=== PATIENT | male | born 1950 | race Caucasian/White ===

== ENCOUNTER 2020-04-28 09:47 | Outpatient (CLI) | payer MEDICARE, SELFPAY ==
--- NOTE | ~2020-04-28 | XR_ITS ---
EXAMINATION: XR knee LT 3V DATE: 04/28/2020 10:20 INDICATION: Left knee pain. TECHNIQUE: 3 views of left knee were obtained. COMPARISON: None. FINDINGS: Bone alignment is normal. No fracture. Joint spaces are well maintained. There is no knee j oint effusion. IMPRESSION: 1. Normal left knee. Reviewed, dictated and finalized at location B. ING INSPECTOR IMPRESSION: 1. Normal left knee.
--- NOTE | ~2020-04-28 | XR_ITS ---
XR lumbar spine 2-3V DATE: 04/28/2020 10:20 INDICATION: Back pain. Left low back pain. No known injury. TECHNIQUE: AP, lateral, coned lateral lumbosacral views COMPARISON: None FINDINGS: Normal alignment of the lumbar spine. No fracture or bone destruction or spondylolisthesis. Mild to moderate degenerative disc disease at L1-2; mild degenerative disease at L2-3, L3-4. There is moderate degenerative disc disease at L4-5 and L5-S1. There is degenerative change at the ap ophyseal joints of the lower lumbar and lumbosacral area. The sacroiliac joints appear normal. IMPRESSION: Multilevel degenerative disc disease Reviewed, dictated and finalized at location A. HIN RESEARCHER
--- NOTE | ~2020-04-28 | XR_ITS ---
EXAMINATION: XR ankle LT 2V DATE: 04/28/2020 10:20 INDICATION: Left ankle pain. TECHNIQUE: 2 views of left ankle were obtained. COMPARISON: None. FINDINGS: Bone alignment is normal. No fracture. There is mild osteoarthritis of talonavicular joint. There are enthesophytes at the posterior and plantar aspects of calcaneal tuberosity. IMPRESSION: 1. Mild osteoarthritis of talonavicular joint. Reviewed, dictated and finalized at location B. ER REPAIRER
== END 2020-04-28 09:48 | disposition home or self-care (01) ==
LOC: ANHIMG 09:52
PROVIDERS: PCP Internal Medicine; Visit Provider Internal Medicine
DX: M47.817 Spondylosis without myelopathy or radiculopathy, lumbosacral region (principal); M19.072 Primary osteoarthritis, left ankle and foot
CPT/HCPCS: 72100; 73562; 73600

== ENCOUNTER → 2020-07-09 07:12 | Outpatient (CLI) | payer MEDICARE, SELFPAY ==
[2020-07-09 19:10] LABS: SARS-CoV-2 RNA PCR Negative
== END ==
PROVIDERS: PCP Internal Medicine; Visit Provider Internal Medicine Cardiovascular Disease
DX: Z01.812 Encounter for preprocedural laboratory examination (principal); Z20.822 Contact with and (suspected) exposure to COVID-19
CPT/HCPCS: C9803; U0003; U0005

== ENCOUNTER → 2020-07-13 10:00 | Day surgery (SDC) | payer MEDICARE, SELFPAY ==
[2020-07-12 16:03] VITALS: BMI 26.5
--- NOTE | 2020-07-13 08:30 | ECG_ITS ---
Measurements Intervals [place] Rate: 39 P: 38 [place]: 177 QRS: -12 QRSD: 87 T: -25 QT: 499 QTc: 402 Interpretive Statements SINUS BRADYCARDIA NONSPECIFIC ST & T-WAVE ABNORMALITY- ANT/INF LEADS ABNORMAL ECG Electronically Signed On 07-13-2020 8:55:28 CHAIRMAN by Demond Stanley D.O.
[2020-07-13 08:40] VITALS: BP 148/74; PULSE 40; RESP 18; O2SAT 100
--- NOTE | 2020-07-13 09:01 | SUR.PREOP ---
Upon arrival to [facility], EKG demonstrated sinus bradycardia. Dr. Stanley notified. Dr Stanley instructed for patient to hold his home dose of metoprolol and call the office to schedule a follow up appointment. Patient and daughter notified of these instructions and verbalize understanding.
== END | disposition home or self-care (01) ==
PROVIDERS: PCP Internal Medicine; Visit Provider Internal Medicine Cardiovascular Disease
PROC: (CPT 93312; principal; 2020-07-13 10:00)
PROC: 5A2204Z Restoration of Cardiac Rhythm, Single (ICD-10-PCS; 2020-07-13 10:00)
DX: I48.91 Unspecified atrial fibrillation (principal); Z53.8 Procedure and treatment not carried out for other reasons
CPT/HCPCS: 36415; 93005; 99212; G0463; J7030; J7040

== ENCOUNTER → 2021-03-09 11:35 | Outpatient (REF) | payer MEDICARE, SELFPAY | LOC: ANHLAB 11:35 | PROVIDERS: PCP Internal Medicine; Visit Provider Nurse Practitioner | DX: R22.9 Localized swelling, mass and lump, unspecified (principal); L72.0 Epidermal cyst | CPT/HCPCS: 88304 ==

== ENCOUNTER 2024-01-15 12:20 | Outpatient (CLI) | payer MEDICARE, SELFPAY ==
--- NOTE | ~2024-01-15 | CT_ITS ---
CT Scan of the Chest without Contrast: Clinical Indication: Lung cancer screening, nicotine dependence Technique: Contiguous sections were acquired throughout the chest without intravenous contrast. Dose reduction technique was used on this scan by utilizing automated exposure control and iterative recon struction technique. The dose-length product (DLP) was 88.43 mGy-cm. Findings: There is no evidence of any significant mediastinal, hilar or axillary lymphadenopathy. Coronary andrzej ry calcifications are present. There is no evidence of pleural or pericardial effusion. Calcified right upper lobe granuloma noted near the perihilar region. No noncalcified pulmonary nodul e evident. Images through the upper abdomen reveal no abnormalities. Impression: Lung RADS 1: Negative. 12 month follow-up screening CT advised. Reviewed, dictated and finalized at location . Impression: Lung RADS 1: Negative. 12 month follow-up screening CT advised.
== END 2024-01-15 12:21 | disposition home or self-care (01) ==
LOC: ANHIMG 12:23
PROVIDERS: PCP Nurse Practitioner Family; Visit Provider Nurse Practitioner Family
DX: Z12.2 Encounter for screening for malignant neoplasm of respiratory organs (principal); F17.210 Nicotine dependence, cigarettes, uncomplicated; R63.4 Abnormal weight loss
CPT/HCPCS: 71271